=== PATIENT | female | born 1965 | race African-American/Black ===

== ENCOUNTER 2019-07-27 08:53 | Emergency (ER) | payer BC ==
[~2019-07-27] VITALS: Ht 167.6 cm; Wt 77.0 kg
[~2019-07-27 08:53] MED LIST: OMEP20TA2 PO
[2019-07-27] MEDS ORDERED: IPRATROPIUM BROMIDE (0.02%) 0.5MG/2.5ML NEB HHN STA (09:09)
[2019-07-27] MEDS ORDERED: PREDNISONE 20MG TABLET PO STA (09:09)
[2019-07-27] MEDS ORDERED: ALBUTEROL (0.083%) 2.5MG/3ML NEB HHN STA (09:09)
[2019-07-27 10:28] VITALS: BP 142/67
== END 2019-07-27 10:30 | disposition home or self-care (01) ==
LOC: ER 08:53
DX: J45.901 Unspecified asthma with (acute) exacerbation (principal); I10 Essential (primary) hypertension
CPT/HCPCS: 94640; 99283; J7512; J7611; Z7610